=== PATIENT | male | born 1970 | race Caucasian/White ===

== ENCOUNTER 2017-04-29 17:56 | Inpatient (IN) | payer OTHER ==
[~2017-04-29] VITALS: Ht 175.3 cm; Wt 102.4 kg
[~2017-04-29 17:56] MED LIST: ASPI-428 PO; CLOP1TAB5 PO; DOCU-94 PO; FRRS300 PO; LSN40 PO; METO50TA16 PO; NRV5 PO; NTRGSL/4 UT; ROSU40TA PO
--- NOTE | 2017-04-29 18:51 | EMERGENCY ROOM VISIT NOTE ---
History Report prepared by Yony: Vale Sanchez Under the Supervision of: Dr. Keith Hardy M.D. First contact with patient: 18:32 Chief Complaint: ABNORMAL LABS Stated Complaint: BLOOD COUNT LOW History of Present Illness The patient is a 47 year old white male with a past medical history of ACS, CAD , dyslipidemia, gastric ulcer, GI bleed, hypertension, and SD who presents to the ED with a cc of abnormal labs beginning today. Positive shortness of breath with exertion. Negative lightheadedness, dizziness, vomiting, nausea, change in bowel movements or urination. The patient states that he saw his surgeon today and is scheduled next Friday to have surgery on his bleeding hemorrhoid. He states that he is on Plavix. The patient states that he had blood work today which revealed low hemoglobin. Source of History: patient Onset: today Position: other (global) Quality: other (abnormal labs) Associated Symptoms: + SOB, No nausea, No vomiting Review of Systems See HPI for pertinent positives and negatives. A total of ten systems were reviewed and were otherwise negative. Past Medical & Surgical Medical Problems: (1) Anemia (2) CAD (coronary artery disease) (3) Hemorrhoids (4) HTN (hypertension) (5) Hypertension Surgical Problems: (1) H/O colonoscopy (2) H/O esophagogastroduodenoscopy (3) Hx of vasectomy Family History Diabetes mellitus Hypertension Seizures Social History Smoking Status: Never Smoker Alcohol Use: none Drug Use: none Housing Status: lives alone Occupation Status: disabled Current/Historical Medications Scheduled Amlodipine Besylate (Amlodipine Besylate), 5 MG PO DAILY Aspirin (Aspirin Ec), 81 MG PO DAILY Clopidogrel Bisulfate (Plavix), 75 MG PO QAM Ferrous Sulfate (Ferrous Sulfate), 325 MG PO BID Hydrochlorothiazide (Hctz), 12.5 MG PO DAILY Lisinopril (Lisinopril), 20 MG PO DAILY Metoprolol Tartrate (Lopressor) (Lopressor), 50 MG PO BID Pantoprazole (Pantoprazole Sodium), 40 MG PO DAILY Rosuvastatin Calcium (Crestor), 40 MG PO DAILY Scheduled PRN Docusate Sodium (Colace), 100 MG PO BID PRN for Constipation Hydrocortisone (Proctosol Hc), 1 APPLN TOP BID PRN for Hemorrhoids Nitroglycerin (Nitrostat), 0.4 MG UT PRN PRN for chest pain Polyethylene Glycol 3350 (Miralax), 17 GM PO DAILY PRN for Constipation Allergies Coded Allergies: Aspirin (Verified Allergy, Unknown, history of bleed, 06/13/16) Penicillins (Verified Allergy, Unknown, HIVES,SWELLING, 06/13/16) Physical Exam Vital Signs Date Time Temp Pulse Resp B/P (MAP) Pulse Ox O2 Delivery O2 Flow Rate FiO2 04/29/17 20:34 80 20 126/69 96 Room Air 04/29/17 18:13 37.0 99 17 136/83 99 Room Air Physical Exam GENERAL: Awake, alert, well-appearing, NAD, pale, but not diaphoretic. HENT: Normocephalic, atraumatic. EYES: Normal conjunctiva. Sclera non-icteric. NECK: Supple. No nuchal rigidity. FROM. RESPIRATORY: CTAB, no rhonchi, wheezing, crackles CARDIAC: RRR, no MRG ABDOMEN: Soft, NTND, BS+ RECTAL: TACOS negative, external hemorrhoids noted, no active bleeding, no bright red blood, Hemoccult negative. MSK: No chest wall TTP, no LE edema NEURO: GCS 15, CN 2-12 intact, moves all 4s on command SKIN: No rash or jaundice noted. Medical Decision & Procedures Laboratory Results 04/29/17 19:15 Red Blood Count 3.66, Mean Corpuscular Volume 69.4, Mean Corpuscular Hemoglobin 21.0, Mean Corpuscular Hemoglobin Concent 30.3, Neutrophils (%) (Auto) 63.9, Lymphocytes (%) (Auto) 28.7, Monocytes (%) (Auto) 5.4, Eosinophils (%) (Auto) 1.0, Basophils (%) (Auto) 0.6, Neutrophils # (Auto) 3.21, Lymphocytes # (Auto) 1.44, Monocytes # (Auto) 0.27, Eosinophils # (Auto) 0.05, Basophils # (Auto) 0.03 04/29/17 19:15 Test 04/29/17 19:15 White Blood Count 5.02 K/uL (4.8-10.8) Red Blood Count 3.66 M/uL (4.7-6.1) Hemoglobin 7.7 g/dL (14.0-18.0) Hematocrit 25.4 % (42-52) Mean Corpuscular Volume 69.4 fL (80-100) Mean Corpuscular Hemoglobin 21.0 pg (25-34) Mean Corpuscular Hemoglobin Concent 30.3 g/dl (32-36) Platelet Count 125 K/uL (130-400) Neutrophils (%) (Auto) 63.9 % Lymphocytes (%) (Auto) 28.7 % Monocytes (%) (Auto) 5.4 % Eosinophils (%) (Auto) 1.0 % Basophils (%) (Auto) 0.6 % Neutrophils # (Auto) 3.21 K/uL (1.4-6.5) Lymphocytes # (Auto) 1.44 K/uL (1.2-3.4) Monocytes # (Auto) 0.27 K/uL (0.11-0.59) Eosinophils # (Auto) 0.05 K/uL (0-0.5) Basophils # (Auto) 0.03 K/uL (0-0.2) RDW Standard Deviation 43.3 fL (36.4-46.3) RDW Coefficient of Variation 17.0 % (11.5-14.5) Immature Granulocyte % (Auto) 0.4 % Immature Granulocyte # (Auto) 0.02 K/uL (0.00-0.02) Platelet Estimate NORMAL Large Platelets 2+ Polychromasia 1+ Microcytosis PRESENT Prothrombin Time 10.0 SECONDS (9.0-12.0) Prothromb Time International Ratio 0.9 (0.9-1.1) Activated Partial Thromboplast Time 22.4 SECONDS (21.0-31.0) Partial Thromboplastin Ratio 0.9 Anion Gap 5.0 mmol/L (3-11) Est Creatinine Clear Calc Drug Dose 118.4 ml/min Estimated GFR () 116.4 Estimated GFR (Non- 100.4 BUN/Creatinine Ratio 15.7 (10-20) Calcium Level 8.8 mg/dl (8.5-10.1) Magnesium Level 2.1 mg/dl (1.8-2.4) Total Bilirubin 0.1 mg/dl (0.2-1) Direct Bilirubin < 0.1 mg/dl (0-0.2) Aspartate Amino Transf (AST/SGOT) 22 U/L (15-37) Alanine Aminotransferase (ALT/SGPT) 26 U/L (12-78) Alkaline Phosphatase 80 U/L (45-117) Total Protein 6.6 gm/dl (6.4-8.2) Albumin 3.2 gm/dl (3.4-5.0) Lipase 144 U/L (73-393) Laboratory results reviewed by me ECG Indication: other (abnormal labs) Rate (beats per minute): 85 Rhythm: normal sinus Findings: other (normal intervals, no ST-S changes, no T wave inversions) ED Course 1839: The patient was evaluated in room C5. A complete history and physical exam was performed. 1999: I reevaluated the patient and he is doing well. I discussed the exam findings with him and I discussed the treatment plan. He verbalized complete understanding and agreement. He is going to be evaluated for further treatment. 2024: I discussed the patients case with Saskia Mcmahon. He is going to evaluate the patient for further treatment. Medical Decision Triage Nursing notes reviewed. The patient's presentation and history were concerning for hemorrhoids, AVM, IBD , coagulopathy, trauma. The patient is a 47 year old white male with a past medical history of ACS, CAD , dyslipidemia, gastric ulcer, GI bleed, hypertension, and SD who presents to the ED with a cc of abnormal labs beginning today. Positive shortness of breath with exertion. Negative lightheadedness, dizziness, vomiting, nausea, change in bowel movements or urination. The patient is on aspirin and Plavix which was last taken today. Patient was seen at outpatient clinic where he states he had what sounds as though was a rectal scope placed in because he was still having some bleeding from internal hemorrhoids he would have an outpatient procedure next week. Of note patient had low hemoglobin and thus was told to come to the ER. Patient does have mild pallor and is complaining of some mild shortness of breath on exertion. Patient denies lightheaded dizziness. Patient did have a TACOS that was completed without any gross blood or melenic stool. Patient also was front end technician negative. However, given that the patient's on aspirin and Plavix and has a hemoglobin and strep 3.7 last year spell with the hospitalist who agreed patient would benefit from further observation and management. Patient was admitted. Medication Reconcilliation Current Medication List: was personally reviewed by me Blood Pressure Screening Patient's blood pressure: Normal blood pressure Blood pressure disposition: Did not require urgent referral Consults Time Called: 2014 Consulting Physician: Saskia Mcmahon Returned Call: 2024 I discussed the patients case with Saskia Mcmahon. He is going to evaluate the patient for further treatment. Impression Primary Impression: Blood loss anemia Additional Impression: Hemorrhoids Scribe Attestation The scribe's documentation has been prepared under my direction and personally reviewed by me in its entirety. I confirm that the note above accurately reflects all work, treatment, procedures, and medical decision making performed by me. Departure Information Dispostion Being Evaluated By Hospitalist Prescriptions Docusate Sodium (COLACE) 100 Mg Cap 100 MG PO BID Y for Constipation, #60 CAP 12 Refills Prov: Denise Emery .LORENZO 04/29/17 Referrals Thaddeus Lozano M.D. (PCP) Problem Qualifiers Additional Impression: Hemorrhoids Hemorrhoid type: unspecified Qualified Codes: K64.9 - Unspecified hemorrhoids
[2017-04-29] MEDS ORDERED: POLY335019 PO (19:16)
[2017-04-29] MEDS ORDERED: ASPI81TA28 PO (19:16)
[2017-04-29] MEDS ORDERED: ANSHCCR TOP (19:16)
[2017-04-29] MEDS ORDERED: HYDR12.56 PO (19:16)
[2017-04-29] MEDS ORDERED: PRT/40 PO (19:16)
[2017-04-29 19:31] LABS: MEAN CORPUSCULAR HGB CONC 30.3 g/dl (32-36)
[2017-04-29 19:50] LABS: INR 0.9 (0.9-1.1); PARTIAL THROMBOPLASTIN RATIO 0.9
[2017-04-29 19:52] LABS: ALT/SGPT 26 U/L (12-78); BLOOD UREA NITROGEN 14 mg/dl (7-18); BUN/CREATININE RATIO 15.7 (10-20); CALCIUM 8.8 mg/dl (8.5-10.1); CARBON DIOXIDE 27 mmol/L (21-32); CHLORIDE 108 mmol/L (98-107); CREATININE 0.89 mg/dl (0.60-1.40); GLUCOSE 180 mg/dl (70-99); POTASSIUM 3.8 mmol/L (3.5-5.1); SODIUM 140 mmol/L (136-145)
[2017-04-29 19:55] LABS: ALKALINE PHOSPHATASE 80 U/L (45-117); AST/SGOT 22 U/L (15-37)
[2017-04-29 20:06] LABS: HEMATOCRIT 25.4 % (42-52); MEAN CELL VOLUME 69.4 fL (80-100); PLATELET COUNT 125 K/uL (130-400); RED BLOOD COUNT 3.66 M/uL (4.7-6.1); WHITE BLOOD COUNT 5.02 K/uL (4.8-10.8)
[2017-04-29 20:07] LABS: BASO % 0.6 %; BASO ABS # 0.03 K/uL (0-0.2); COMPLETE YES; IG% 0.4 %; LARGE PLATELETS 2+; LYMPH % 28.7 %; LYMPH ABS # 1.44 K/uL (1.2-3.4); MICROCYTOSIS PRESENT; MONO % 5.4 %; NEUT % 63.9 %; PLT ESTIMATE NORMAL; POLYCHROMASIA 1+
[2017-04-29 20:57] LABS: MAGNESIUM 2.1 mg/dl (1.8-2.4)
[2017-04-29] MEDS ORDERED: DOCU-94 PO (21:18)
--- NOTE | 2017-04-29 21:30 | History and Physical ---
History & Physical Date & Time of Service: Apr 29, 2017 ~ 21:00 Chief Complaint: Blood Count Low Primary Care Physician: Thaddeus Lozano M.D. History of Present Illness 47 year old male who was referred by his PCP for low blood counts. Patient has history of extensive CAD on dual antiplatelet therapy and also chronic anemia felt to be due to chronic bleeding hemorrhoids. Patient has been following with colorectal surgery for possible banding and was seen in the office today for a pre op visit. Outpatient labs showed hgb 7.7. He was then referred to the ER for further evaluation. Patient reports he has been feeling well recently. He reports his hemorrhoids continue to bleed about every 3-4 days. He denies chest pain and shortness of breath. He reports mild lightheadedness and dizziness with standing at time but denies any syncopal events. He denies abdominal pain, nausea, vomiting, or diarrhea. No fever or chills. He denies any urinary symptoms. Labs in the ED show hgb 7.7. Vitals are stable. Past Medical/Surgical History Medical Problems: (1) Anemia Status: Chronic (2) CAD (coronary artery disease) Permanent Comment: 04/2012 - NSTEMI - 2 ABY to LCX and LCX OM, severe stenosis to a nondominant RCA not amendable to intervention 03/30/14 - NSTEMI after two week period of medication non compliance, cath showed patent stents however significant disease noted to proximal and mid LAD, non dominant RCA unchanged from previous - underwent PCI with 2 BMS to LAD 12/2014 - NSTEMI precipitated by anemia due to GI blood loss 06/2016 - NSTEMI, s/p BMA to [facility] Status: Chronic (3) Hemorrhoids Status: Chronic (4) HTN (hypertension) Status: Chronic (5) Hypertension Status: Chronic Surgical Problems: (1) H/O colonoscopy Permanent Comment: 06/30/2015 adenomatous polyps, repeat 3 yrs/[facility] internal and external hemorrhoids Status: Chronic (2) H/O esophagogastroduodenoscopy Permanent Comment: 06/30/2015; gastritis; normal /[facility] Status: Chronic (3) Hx of vasectomy Status: Chronic Family History Diabetes mellitus (DM) MOTHER FH: CVA (cerebrovascular accident) MOTHER FH: HTN (hypertension) FATHER FH: brain cancer SISTER FH: chronic renal disease FATHER (on dialysis) Social History Smoking Status: Current Every Day Smoker (has cut back significantly to 1 pack/ week) Alcohol Use: none Occupational Status: disabled Immunizations History of Influenza Vaccine: Yes Influenza Vaccine Date: Jun 18, 2012 History of Tetanus Vaccine?: Yes Tetanus Immunization Date: Oct 28, 2016 History of Pneumococcal: Yes Pneumococcal Date: Jun 18, 2012 History of Hepatitis B Vaccine: Unknown Multi-Drug Resistant Organisms History of MDRO: No Allergies Coded Allergies: Aspirin (Verified Allergy, Unknown, history of bleed, 06/13/16) Penicillins (Verified Allergy, Unknown, HIVES,SWELLING, 06/13/16) Home Medications Scheduled Amlodipine Besylate (Amlodipine Besylate), 5 MG PO DAILY Aspirin (Aspirin Ec), 81 MG PO DAILY Clopidogrel Bisulfate (Plavix), 75 MG PO QAM Ferrous Sulfate (Ferrous Sulfate), 325 MG PO BID Hydrochlorothiazide (Hctz), 12.5 MG PO DAILY Lisinopril (Lisinopril), 20 MG PO DAILY Metoprolol Tartrate (Lopressor) (Lopressor), 50 MG PO BID Pantoprazole (Pantoprazole Sodium), 40 MG PO DAILY Rosuvastatin Calcium (Crestor), 40 MG PO DAILY Scheduled PRN Docusate Sodium (Colace), 100 MG PO BID PRN for Constipation Hydrocortisone (Proctosol Hc), 1 APPLN TOP BID PRN for Hemorrhoids Nitroglycerin (Nitrostat), 0.4 MG UT PRN PRN for chest pain Polyethylene Glycol 3350 (Miralax), 17 GM PO DAILY PRN for Constipation Review of Systems ROS per HPI, all other systems reviewed and negative Physical Exam Vital Signs Date Time Temp Pulse Resp B/P (MAP) Pulse Ox O2 Delivery O2 Flow Rate FiO2 04/29/17 20:34 80 20 126/69 96 Room Air 04/29/17 18:13 37.0 99 17 136/83 99 Room Air General Appearance: no apparent distress Head: normocephalic Eyes: normal inspection, sclerae normal ENT: hearing grossly normal Neck: supple, no JVD Respiratory/Chest: lungs clear, normal breath sounds, no respiratory distress Cardiovascular: regular rate, rhythm, no edema, normal peripheral pulses Abdomen/GI: normal bowel sounds, non tender, soft, + distended Extremities/Musculoskelatal: normal inspection, no calf tenderness Neurologic/Psych: no motor/sensory deficits, alert, normal mood/affect, oriented x 3 Skin: normal color, warm/dry Diagnostics Laboratory Results Results Past 24 Hours Test 04/29/17 19:15 Range/Units White Blood Count 5.02 4.8-10.8 K/uL Red Blood Count 3.66 4.7-6.1 M/uL Hemoglobin 7.7 14.0-18.0 g/dL Hematocrit 25.4 42-52 % Mean Corpuscular Volume 69.4 80-100 fL Mean Corpuscular Hemoglobin 21.0 25-34 pg Mean Corpuscular Hemoglobin Concent 30.3 32-36 g/dl Platelet Count 125 130-400 K/uL Neutrophils (%) (Auto) 63.9 % Lymphocytes (%) (Auto) 28.7 % Monocytes (%) (Auto) 5.4 % Eosinophils (%) (Auto) 1.0 % Basophils (%) (Auto) 0.6 % Neutrophils # (Auto) 3.21 1.4-6.5 K/uL Lymphocytes # (Auto) 1.44 1.2-3.4 K/uL Monocytes # (Auto) 0.27 0.11-0.59 K/uL Eosinophils # (Auto) 0.05 0-0.5 K/uL Basophils # (Auto) 0.03 0-0.2 K/uL RDW Standard Deviation 43.3 36.4-46.3 fL RDW Coefficient of Variation 17.0 11.5-14.5 % Immature Granulocyte % (Auto) 0.4 % Immature Granulocyte # (Auto) 0.02 0.00-0.02 K/uL Platelet Estimate NORMAL Large Platelets 2+ Polychromasia 1+ Microcytosis PRESENT Prothrombin Time 10.0 9.0-12.0 SECONDS Prothromb Time International Ratio 0.9 0.9-1.1 Activated Partial Thromboplast Time 22.4 21.0-31.0 SECONDS Partial Thromboplastin Ratio 0.9 Sodium Level 140 136-145 mmol/L Potassium Level 3.8 3.5-5.1 mmol/L Chloride Level 108 98-107 mmol/L Carbon Dioxide Level 27 21-32 mmol/L Anion Gap 5.0 3-11 mmol/L Blood Urea Nitrogen 14 7-18 mg/dl Creatinine 0.89 0.60-1.40 mg/dl Est Creatinine Clear Calc Drug Dose 118.4 ml/min Estimated GFR () 116.4 Estimated GFR (Non- 100.4 BUN/Creatinine Ratio 15.7 10-20 Random Glucose 180 70-99 mg/dl Calcium Level 8.8 8.5-10.1 mg/dl Magnesium Level 2.1 1.8-2.4 mg/dl Total Bilirubin 0.1 0.2-1 mg/dl Direct Bilirubin < 0.1 0-0.2 mg/dl Aspartate Amino Transf (AST/SGOT) 22 15-37 U/L Alanine Aminotransferase (ALT/SGPT) 26 12-78 U/L Alkaline Phosphatase 80 45-117 U/L Total Protein 6.6 6.4-8.2 gm/dl Albumin 3.2 3.4-5.0 gm/dl Lipase 144 73-393 U/L Impression Assessment and Plan ANEMIA - patient presenting for referral from PCP when hgb was found to be 7.7 on pre op labs for hemorrhoidal banding - source for bleeding is likely hemorrhoids - EGD 2014 - gastritis, c scope 2014 - polyps (negative path), internal and external hemorrhoids - patient asymptomatic and hemodynamically stable - on ASA and Plavix for extensive CAD history - last intervention was 06/2016 with BMS placement - transfuse PRBC CAD - currently stable - extensive as outlined above - continue beta luiza and statin; holding ASA and Plavix due to hemorrhoidal bleeding and anemia HTN - BP controlled, continue HCTZ, metoprolol, and Lisinopril DVT PROPHYLAXIS - SCDs due to anemia / hemorrhoidal bleeding DISPO - In my clinical judgment this beneficiary meets acute admission criteria, established by [facility], that includes being hospitalized through two midnights. Assessment/Plan IM ATTENDING : Patient seen and examined. History obtained from patient and records. Preceding documentation by LORENZO Rizvi, reviewed. FINAL ASSESSMENT AND PLAN as follows: 1. Acute on chronic anemia secondary to slow lower gastrointestinal bleed, likely from hemorrhoidal bleed over the last several months Patient asymptomatic. Outpatient hemorrhoid surgery by colorectal surgeon at [facility] Sue Allred contemplated next week. 2. Coronary artery disease, status post stenting. 3. Hypertension. 4. Hyperlipidemia on statin therapy. 5. Ongoing tobacco abuse. 6. Hyperglycemia. Rule out diabetes. [facility] Transfuse packed RBC to maintain hemoglobin greater than 8. (hx CAD) hold antiplatelets for now until hemoglobin stable. Check hemoglobin A1c. Patient counseled to stop smoking. DVT prophylaxis, SCDs R LGIB Full code.
[2017-04-29] MEDS ORDERED: MoRPHine SULFATE 4 MG/ML 1 ML CARP\\VIAL IV PRN (23:00)
[2017-04-29] MEDS ORDERED: ONDANSETRON INJ 2 MG/ML 2 ML VIAL IV PRN (23:00)
[2017-04-29] MEDS ORDERED: ACETAMINOPHEN 325 MG TAB PO PRN (23:00)
[2017-04-29] MEDS ORDERED: LORAZEPAM 2 MG/ML 1 ML VIAL IV PRN (23:00)
[2017-04-29] MEDS ORDERED: NITROGLYCERIN 0.4 MG SL PER TAB CHARGE UT PRN (23:00)
[2017-04-29] MEDS ORDERED: TRAMADOL HCL 50 MG TAB PO PRN (23:00)
[2017-04-29] MEDS ORDERED: POLYETHYLENE (MIRALAX) 17 GM PACK PO PRN (23:00)
[2017-04-29 23:16] VITALS: BP 133/79; PULSE 79; TEMP 36.6
[2017-04-29 23:30] VITALS: BP 126/71; PULSE 80; TEMP 37.1
[2017-04-29] MEDS ORDERED: LORAZEPAM INJ 0.5 MG in SYRINGE 0.75 ML IV PRN (23:30)
[2017-04-29 23:45] VITALS: BP 128/75; PULSE 88; TEMP 37.1; O2SAT 97
[2017-04-29 23:56] VITALS: BP 131/79; PULSE 79; TEMP 37.1; O2SAT 97; Ht 175.3 cm; Wt 102.4 kg
[2017-04-30 00:30] VITALS: BP 101/63; PULSE 83; TEMP 37.2; O2SAT 97
[2017-04-30 01:30] VITALS: BP 97/57; PULSE 75; TEMP 36.2; O2SAT 97
--- NOTE | 2017-04-30 07:01 | HISTORY & PHYSICAL EXAMINATION ---
DATE OF ADMISSION: 04/29/2017 IM ATTENDING : Patient seen and examined. History obtained from patient and records. Preceding documentation by LORENZO Rizvi, reviewed. FINAL ASSESSMENT AND PLAN as follows: 1. Acute on chronic anemia secondary to slow lower gastrointestinal bleed, likely from hemorrhoidal bleed over the last several months Patient asymptomatic. Outpatient hemorrhoid surgery by colorectal surgeon at [facility] Sue Allred contemplated next week. 2. Coronary artery disease, status post stenting. 3. Hypertension. 4. Hyperlipidemia on statin therapy. 5. Ongoing tobacco abuse. 6. Hyperglycemia. Rule out diabetes. F Transfuse packed RBC to maintain hemoglobin greater than 8. (hx CAD) hold antiplatelets for now until hemoglobin stable. Check hemoglobin A1c. Patient counseled to stop smoking. DVT prophylaxis, SCDs R LGIB Full code. MTDD
[2017-04-30 07:17] VITALS: BP 98/62; PULSE 87; TEMP 36.9; O2SAT 97
[2017-04-30 07:18] LABS: ESTIMATED AVERAGE GLUCOSE 146 mg/dl; HA1C FLAG Normal (Normal)
[2017-04-30 08:17] LABS: ANISOCYTOSIS PRESENT; BASO % 0.4 %; BASO ABS # 0.03 K/uL (0-0.2); COMPLETE YES; EOS % 2.1 %; GIANT PLATELETS 2+; IG% 0.3 %; LYMPH % 28.3 %; MEAN CELL VOLUME 72.9 fL (80-100); MEAN CORPUSCULAR HEMOGLOBIN 22.4 pg (25-34); MEAN CORPUSCULAR HGB CONC 30.7 g/dl (32-36); MICROCYTOSIS PRESENT; MONO % 7.7 %; NEUT % 61.2 %; PLATELET COUNT 121 K/uL (130-400); PLT ESTIMATE NORMAL; RED BLOOD COUNT 3.98 M/uL (4.7-6.1); WHITE BLOOD COUNT 6.72 K/uL (4.8-10.8)
[2017-04-30 08:50] VITALS: BP 129/81; PULSE 96
[2017-04-30] MEDS ORDERED: ROSUVASTATIN CALCIUM 20 MG TAB PO SCH (09:00)
[2017-04-30] MEDS ORDERED: METOPROLOL TARTRATE 50 MG TAB PO SCH (09:00)
[2017-04-30] MEDS ORDERED: AMLODIPINE BESYLATE 5 MG TAB PO SCH (09:00)
[2017-04-30] MEDS ORDERED: LISINOPRIL 20 MG TAB PO SCH (09:00)
[2017-04-30] MEDS ORDERED: PANTOprazole SOD 40 MG TAB PO SCH (09:00)
[2017-04-30] MEDS ORDERED: FERROUS SULFATE 325 MG TAB PO SCH (09:00)
--- NOTE | 2017-04-30 12:42 | Clinical Documentation Query ---
CLINICAL DOCUMENTATION QUERY Dr. SCANLON, In your clinical opinion is this patient being managed for: ( X ) Acute blood loss anemia ( ) Chronic blood loss anemia ( ) Other explanation of clinical findings (Please Explain) ( ) Unable to determine (Please Define) ( ) Need to Discuss ( ) Not Agree The medical record reflects the following clinical findings, treatment, and risk factors. Clinical Indicators: 47 yo male presenting with acute on chronic anemia linked to likely hemorrhoidal bleeding. Treatment: transfuse 1 U PRBC, monitor H/H daily Risk Factors: hemorrhoidal bleeding with potential planned hemorrhoid surgery next week Please clarify and document your clinical opinion in the progress notes and discharge summary. Terms such as "probable", "suspected", "likely", "questionable", "possible", or "still to be ruled out" are acceptable. IF IN AGREEMENT, YOU MUST DOCUMENT ABOVE DIAGNOSTIC STATEMENT IN DAILY PROGRESS NOTES AND DISCHARGE SUMMARY. This document is not part of the patient's record. Thank You, Azalea Logan, DUANE [phone]
--- NOTE | 2017-04-30 12:46 | Progress Note ---
Subjective Date of Service: Apr 30, 2017. Subjective Pt evaluation today including: conversation w/ patient, physical exam, lab review, review of studies, review of inpatient medication list Saw/examined the patient in room 262 No problems/issues to note Tolerated blood transfusion Denies fevers/chills, denies CP/SOB; no other issues to note; eager to go home Problem List Medical Problems: (1) Hemorrhoids Status: Chronic Review of Systems Constitutional: No fever, No chills Respiratory: No cough, No sputum, No shortness of breath Cardiac: No chest pain, No edema, No palpitations Abdomen: + GI bleeding (intermittently), No pain, No nausea, No vomiting, No diarrhea, No constipation Medications Current Inpatient Medications Medications (Trade) Dose Ordered Sig/Mckenna Route Start Time Stop Time Status Last Admin Dose Admin Acetaminophen (Tylenol Tab) 650 mg Q4H PRN PO 04/29/17 23:00 05/29/17 22:59 Amlodipine Besylate (Norvasc Tab) 5 mg DAILY PO 04/30/17 09:00 05/30/17 08:59 04/30/17 08:52 5 MG Ferrous Sulfate (Feosol Tab) 325 mg BID PO 04/30/17 09:00 05/30/17 08:59 04/30/17 07:53 325 MG Lisinopril (Zestril Tab) 20 mg DAILY PO 04/30/17 09:00 05/30/17 08:59 04/30/17 08:52 20 MG Metoprolol Tartrate (Lopressor Tab) 50 mg BID PO 04/30/17 09:00 05/30/17 08:59 04/30/17 08:52 50 MG Nitroglycerin (Nitrostat Tab) 0.4 mg PRN PRN UT 04/29/17 23:00 05/29/17 22:59 Pantoprazole Sodium (Protonix Tab) 40 mg DAILY PO 04/30/17 09:00 05/30/17 08:59 04/30/17 07:53 40 MG Rosuvastatin Calcium (Crestor Tab) 40 mg DAILY PO 04/30/17 09:00 05/30/17 08:59 04/30/17 07:53 40 MG Polyethylene (Miralax Powder Packet) 17 gm DAILY PRN PO 04/29/17 23:00 05/29/17 22:59 Tramadol HCl (Ultram Tab) 25 mg Q6H PRN PO 04/29/17 23:00 05/29/17 22:59 Ondansetron HCl (Zofran Inj) 4 mg Q6H PRN IV 04/29/17 23:00 05/29/17 22:59 Lorazepam (Ativan Inj) 0.5 mg Q4H PRN IV 04/29/17 23:00 05/29/17 22:59 Morphine Sulfate (MoRPHine SULFATE INJ) 4 mg Q6H PRN IV 04/29/17 23:00 05/13/17 22:59 Lorazepam 0.5 mg/ Syringe 1 ml @ 1 mls/min Q4H PRN IV 04/29/17 23:30 05/29/17 23:29 Objective Vital Signs Date Time Temp Pulse Resp B/P (MAP) Pulse Ox O2 Delivery O2 Flow Rate FiO2 04/30/17 08:50 96 129/81 (97) 04/30/17 08:00 Room Air 04/30/17 07:17 36.9 87 17 98/62 (74) 97 04/30/17 01:30 36.2 75 16 97/57 (70) 97 Room Air 04/30/17 00:30 37.2 83 16 101/63 (76) 97 Room Air 04/29/17 23:56 37.1 79 16 131/79 97 Room Air 04/29/17 23:45 37.1 88 16 128/75 (92) 97 Room Air 04/29/17 23:30 37.1 80 16 126/71 (89) 04/29/17 23:16 36.6 79 16 133/79 04/29/17 22:39 86 136/79 97 04/29/17 22:34 86 20 136/79 97 Room Air 04/29/17 20:34 80 20 126/69 96 Room Air 04/29/17 18:13 37.0 99 17 136/83 99 Room Air Physical Exam General Appearance: no apparent distress ENT: hearing grossly normal Respiratory/Chest: chest non-tender, lungs clear, normal breath sounds, no respiratory distress, no accessory muscle use Cardiovascular: regular rate, rhythm, no edema, no murmur Abdomen: normal bowel sounds, non tender, soft Extremities: normal inspection, no pedal edema Neurologic/Psychiatric: no motor/sensory deficits, alert, normal mood/affect Laboratory Results Last 24 Hours Test 04/29/17 19:15 04/30/17 07:09 04/30/17 12:00 White Blood Count 5.02 K/uL 6.72 K/uL Red Blood Count 3.66 M/uL 3.98 M/uL Hemoglobin 7.7 g/dL 8.9 g/dL Hematocrit 25.4 % 29.0 % Mean Corpuscular Volume 69.4 fL 72.9 fL Mean Corpuscular Hemoglobin 21.0 pg 22.4 pg Mean Corpuscular Hemoglobin Concent 30.3 g/dl 30.7 g/dl Platelet Count 125 K/uL 121 K/uL Neutrophils (%) (Auto) 63.9 % 61.2 % Lymphocytes (%) (Auto) 28.7 % 28.3 % Monocytes (%) (Auto) 5.4 % 7.7 % Eosinophils (%) (Auto) 1.0 % 2.1 % Basophils (%) (Auto) 0.6 % 0.4 % Neutrophils # (Auto) 3.21 K/uL 4.11 K/uL Lymphocytes # (Auto) 1.44 K/uL 1.90 K/uL Monocytes # (Auto) 0.27 K/uL 0.52 K/uL Eosinophils # (Auto) 0.05 K/uL 0.14 K/uL Basophils # (Auto) 0.03 K/uL 0.03 K/uL RDW Standard Deviation 43.3 fL 50.0 fL RDW Coefficient of Variation 17.0 % 19.1 % Immature Granulocyte % (Auto) 0.4 % 0.3 % Immature Granulocyte # (Auto) 0.02 K/uL 0.02 K/uL Platelet Estimate NORMAL NORMAL Large Platelets 2+ Polychromasia 1+ Microcytosis PRESENT PRESENT Prothrombin Time 10.0 SECONDS Prothromb Time International Ratio 0.9 Activated Partial Thromboplast Time 22.4 SECONDS Partial Thromboplastin Ratio 0.9 Sodium Level 140 mmol/L Potassium Level 3.8 mmol/L Chloride Level 108 mmol/L Carbon Dioxide Level 27 mmol/L Anion Gap 5.0 mmol/L Blood Urea Nitrogen 14 mg/dl Creatinine 0.89 mg/dl Est Creatinine Clear Calc Drug Dose 118.4 ml/min Estimated GFR () 116.4 Estimated GFR (Non- 100.4 BUN/Creatinine Ratio 15.7 Random Glucose 180 mg/dl Estimated Average Glucose 146 mg/dl Hemoglobin A1c 6.7 % Calcium Level 8.8 mg/dl Magnesium Level 2.1 mg/dl Total Bilirubin 0.1 mg/dl Direct Bilirubin < 0.1 mg/dl Aspartate Amino Transf (AST/SGOT) 22 U/L Alanine Aminotransferase (ALT/SGPT) 26 U/L Alkaline Phosphatase 80 U/L Total Protein 6.6 gm/dl Albumin 3.2 gm/dl Lipase 144 U/L Giant Platelets 2+ Anisocytosis PRESENT Assessment and Plan This is a 47 year old male with a PMH of CAD s/p stenting, HTN, HLD, external hemorrhoids presents due to low Hgb on outpatient labs Anemia secondary to blood loss, due to bleeding from external hemorrhoids Hgb on admission was 7.7; asymptomatic, but due to CAD, transfused one unit Hgb now up to 8.9 Patient is feeling well and eager to go home will continue to hold Plavix until next week's hemorrhoid banding procedure CAD last stent ~ 2011? as per patient will hold Plavix, continue aspirin until the day before procedure next week restart Plavix when okay with colorectal surgeon continue b-luiza, ROOSEVELT-I HTN BP controlled continue amlodipine, metoprolol, lisinopril DVT ppx SCDs FULL CODE
--- NOTE | 2017-04-30 12:48 | Discharge Instructions ---
Discharge Instructions Date of Service Apr 30, 2017. Admission Reason for Admission: Gi Bleed Discharge Discharge Diagnosis / Problem: Acute Blood Loss Anemia, Hemorrhoidal Bleed Discharge Goals Goal(s): Decrease discomfort, Improve function, Diagnostic testing, Therapeutic intervention Activity Recommendations Activity Limitations: resume your previous activity . Instructions / Follow-Up Instructions / Follow-Up Please follow-up with Dr. Lozano on May 05 at 9:25AM Follow-up with the colorectal surgeon on May 07 * Hold Plavix until it is okay with the colorectal surgeon to continue it * continue Aspirin until the day prior to the procedure Current Hospital Diet Patient's current hospital diet: Clear Liquid Diet Discharge Diet Recommended Diet: AHA Diet (Heart Healthy) Pending Studies Studies pending at discharge: no Laboratory Results Hemoglobin A1c Test 04/29/17 19:15 Range/Units Estimated Average Glucose 146 mg/dl Hemoglobin A1c 6.7 H 4.5-5.6 % Medical Emergencies . Who to Call and When: Medical Emergencies: If at any time you feel your situation is an emergency, please call 911 immediately. . Non-Emergent Contact Non-Emergency issues call your: Primary Care Provider . . "Provider Documentation" section prepared by Shalini Morley. . VTE Core Measure Inpt VTE Proph given/why not?: SCD's
--- NOTE | 2017-04-30 12:54 | Discharge Summary ---
Discharge Summary Date of Service Apr 30, 2017. Discharge Summary Admission Date: Apr 29, 2017 at 21:57 Discharge Date: Apr 30, 2017 Discharge Disposition: Home Principal Diagnosis: External Hemorrhoids, GI Bleed Acute Blood Loss Anemia Medication Reconciliation Continued Medications: Amlodipine Besylate (Amlodipine Besylate) 5 Mg Tab 5 MG PO DAILY, TAB Aspirin (Aspirin Ec) 81 Mg Tab 81 MG PO DAILY Docusate Sodium (Colace) 100 Mg Cap 100 MG PO BID PRN for Constipation, #60 CAP 12 Refills Ferrous Sulfate (Ferrous Sulfate) 325 Mg Tab 325 MG PO BID, #60 TAB 12 Refills No prescription necessary. Hydrochlorothiazide (Hctz) 12.5 Mg Cap 12.5 MG PO DAILY, #34 Hydrocortisone (Proctosol Hc) 90 Appln/30 Gm Cr 1 APPLN TOP BID PRN for Hemorrhoids, #28 Lisinopril (Lisinopril) 40 Mg Tab 20 MG PO DAILY Metoprolol Tartrate (Lopressor) (Lopressor) 50 Mg Tab 50 MG PO BID, TAB Nitroglycerin (Nitrostat) 0.4 Mg Tab 0.4 MG UT PRN PRN for chest pain, #1 BTL 1 Refill May repeat dose in 5 min. Call 911 if no relief. Pantoprazole (Pantoprazole Sodium) 40 Mg Tab 40 MG PO DAILY, #34 Polyethylene Glycol 3350 (Miralax) 1 Pow Pow 17 GM PO DAILY PRN for Constipation, #527 GM Rosuvastatin Calcium (Crestor) 40 Mg Tab 40 MG PO DAILY Discontinued Medications: Clopidogrel Bisulfate (Plavix) 75 Mg Tab 75 MG PO QAM, TAB Admission Information HPI (per Admitting provider): 47 year old male who was referred by his PCP for low blood counts. Patient has history of extensive CAD on dual antiplatelet therapy and also chronic anemia felt to be due to chronic bleeding hemorrhoids. Patient has been following with colorectal surgery for possible banding and was seen in the office today for a pre op visit. Outpatient labs showed hgb 7.7. He was then referred to the ER for further evaluation. Patient reports he has been feeling well recently. He reports his hemorrhoids continue to bleed about every 3-4 days. He denies chest pain and shortness of breath. He reports mild lightheadedness and dizziness with standing at time but denies any syncopal events. He denies abdominal pain, nausea, vomiting, or diarrhea. No fever or chills. He denies any urinary symptoms. Labs in the ED show hgb 7.7. Vitals are stable. Physical Exam (per Admitting): General Appearance: no apparent distress Head: normocephalic Eyes: normal inspection, sclerae normal ENT: hearing grossly normal Neck: supple, no JVD Respiratory/Chest: lungs clear, normal breath sounds, no respiratory distress Cardiovascular: regular rate, rhythm, no edema, normal peripheral pulses Abdomen/GI: normal bowel sounds, non tender, soft, + distended Extremities/Musculoskelatal: normal inspection, no calf tenderness Neurologic/Psych: no motor/sensory deficits, alert, normal mood/affect, oriented x 3 Skin: normal color, warm/dry Hospital Course This is a 47 year old male with a PMH of CAD s/p stenting, HTN, HLD, external hemorrhoids presents due to low Hgb on outpatient labs Anemia secondary to blood loss, due to bleeding from external hemorrhoids Hgb on admission was 7.7; asymptomatic, but due to CAD, transfused one unit Hgb now up to 8.9 Patient is feeling well and eager to go home will continue to hold Plavix until next week's hemorrhoid banding procedure CAD last stent ~ 2011? as per patient will hold Plavix, continue aspirin until the day before procedure next week restart Plavix when okay with colorectal surgeon continue b-luiza, ROOSEVELT-I HTN BP controlled continue amlodipine, metoprolol, lisinopril DVT ppx SCDs FULL CODE Total time spent on discharge = 25 minutes This includes examination of the patient, discharge planning, medication reconciliation, and communication with other providers. Discharge Instructions Please follow-up with Dr. Lozano on May 05 at 9:25AM Follow-up with the colorectal surgeon on May 07 * Hold Plavix until it is okay with the colorectal surgeon to continue it * continue Aspirin until the day prior to the procedure Additional Copies To Thaddeus Lozano M.D.
[2017-04-30 12:58] VITALS: BP 129/81; PULSE 96; TEMP 36.9; O2SAT 97
[2017-04-30 13:31] LABS: HEMATOCRIT 31.2 % (42-52)
== END 2017-04-30 13:32 | disposition home or self-care (01) | DRG 394 ==
LOC: C.EDB 17:57 → C.MS2W 21:57 → ENRESERV 22:22
PROVIDERS: ADMIT Family Medicine; ATTEND Family Medicine
DX: K64.4 Residual hemorrhoidal skin tags (principal); D62 Acute posthemorrhagic anemia; D50.0 Iron deficiency anemia secondary to blood loss (chronic); R73.9 Hyperglycemia, unspecified; I25.10 Atherosclerotic heart disease of native coronary artery without angina pectoris; I11.9 Hypertensive heart disease without heart failure; I25.2 Old myocardial infarction; E78.5 Hyperlipidemia, unspecified; F17.200 Nicotine dependence, unspecified, uncomplicated; Z79.899 Other long term (current) drug therapy; Z79.02 Long term (current) use of antithrombotics/antiplatelets; Z79.82 Long term (current) use of aspirin; Z95.5 Presence of coronary angioplasty implant and graft; Z83.3 Family history of diabetes mellitus; Z82.49 Family history of ischemic heart disease and other diseases of the circulatory system; Z82.3 Family history of stroke; Z84.1 Family history of disorders of kidney and ureter; Z80.8 Family history of malignant neoplasm of other organs or systems